=== PATIENT | male | born 1970 | race Caucasian/White ===

== ENCOUNTER 2018-05-17 11:53 | Outpatient (CLI) | payer BC, OTHER ==
--- NOTE | 2018-05-17 12:36 | XRAY Report ---
Reason: FOOT NUMBNESS Procedure Date: 05/17/2018 Accession Number: [id number] Procedure: XR - Lumbar Spine 2 View CPT Code: FULL RESULT: EXAM: LUMBOSACRAL SPINE RADIOGRAPHY EXAM DATE: 05/17/2018 12:11 PM. CLINICAL HISTORY: FOOT NUMBNESS. COMPARISONS: None. TECHNIQUE: 3 views. FINDINGS: Alignment: Normal. No spondylolisthesis or scoliosis. Bones: Five [id number] lumbar vertebral bodies are present. No fractures or bone lesions. Disks: Normal. Disk heights are maintained. Facets: Moderate L5 facet arthropathy, mild at L4. Sacroiliac Joints: Unremarkable. Soft Tissues: Normal. The visualized bowel gas pattern is normal. IMPRESSION: Mild to moderate degenerative changes. RADIA
== END 2018-05-17 11:54 | disposition home or self-care (01) ==
LOC: DI 11:53
PROVIDERS: ATTEND Family Medicine
DX: M47.817 Spondylosis without myelopathy or radiculopathy, lumbosacral region (principal); R20.0 Anesthesia of skin
CPT/HCPCS: 72100

== ENCOUNTER 2018-10-03 08:42 | Outpatient (CLI) | payer BC ==
--- NOTE | 2018-10-03 12:16 | CARDIAC PROCEDURE NOTE ---
DATE OF SERVICE: 10/03/2018 Physician: Sarina Mariee MD, [facility] INDICATIONS: Screening for coronary artery disease (Z13.6) CORONARY RISK FACTORS: Male gender, overweight (BMI is 36), possibly untreated hypertension (see below), and hyperlipidemia. PROCEDURE: After signing informed consent, the patient underwent a Lamont protocol treadmill stress test. No imaging was ordered with the study. RESTING HEART RATE: 72. Peak heart rate: 152. (87% predicted maximum heart rate for age). RESTING BLOOD PRESSURE: 142/90, Resting blood pressure when standin/87. Peak blood pressure: 192/70. The patient exercised for 9 minutes and 10 seconds on a Lamont-protocol treadmill stress test. He achieved a peak heart rate of 152 (87% predicted max HR) and 10.4 METS. He had mild to moderate shortness of breath at peak, no chest pain with exertion. Oxygen saturation was 96% on room air at peak. Normal heart rate response to exercise, hypertensive blood pressure response to exercise. RESTING EKG: Normal sinus rhythm, vertical axis, otherwise within normal limits. EKG AT PEAK: No ischemic ST segment changes by EKG criteria. SUMMARY 1. Good exercise tolerance. 2. Hypertensive blood pressure response to exercise. 3. No ischemic changes by EKG criteria on this treadmill exercise stress test, at a good level of achieved stress. 4. No imaging study was ordered with this test. cc: Davidson Pretty DO TD: 10/03/2018 12:07 MTDD
== END 2018-10-03 08:43 | disposition home or self-care (01) ==
LOC: DI 08:42
PROVIDERS: ATTEND Family Medicine
DX: Z13.6 Encounter for screening for cardiovascular disorders (principal); E78.5 Hyperlipidemia, unspecified; E66.3 Overweight; Z68.36 Body mass index [BMI] 36.0-36.9, adult; R03.0 Elevated blood-pressure reading, without diagnosis of hypertension
CPT/HCPCS: 93016; 93017; 93018

== ENCOUNTER 2018-10-14 11:15 | Outpatient (CLI) | payer BC | END 2018-10-14 11:16 | disposition home or self-care (01) | LOC: SC 11:15 | PROVIDERS: ATTEND Internal Medicine Pulmonary Disease | DX: G47.33 Obstructive sleep apnea (adult) (pediatric) (principal); E66.9 Obesity, unspecified; Z68.36 Body mass index [BMI] 36.0-36.9, adult | CPT/HCPCS: 99203; 99212 ==

== ENCOUNTER 2019-05-07 11:26 | Outpatient (CLI) | payer BC ==
--- NOTE | 2019-05-07 12:23 | SLEEP CARE CONSULTATION ---
Information from patient questionnaire entered by Yessica Cisneros. I have reviewed and concur with the information entered by Yessica Cisneros. This document represents the service I personally performed and the decisions made by me, Jennifer Chang, RN, MSN, [employer] [place]. History of Present Illness Previous diagnosis: Mild, Obstructive Sleep Apnea-Hypopnea Syndrome AHI: 9.8 (in 2013) Reason for follow up: first compliance after device update Equipment type: CPAP Equipment obtained from: [facility] Mask style: Nasal Mask brand: Respironics Backup mask available: Yes Last cushion change: a couple of months ago CPAP Compliance Data - Data Reviewed with Patient Average duration of nightly device use: 6.7 Compliance rate %: 70 (initial period) (last 30 days 57%) Current pressure setting (cmH2O): 6-10 Average residual AHI: 1.7 Average large leak: zero Subjective Missed days of use due to: reports: illness (URI - bronchitus), other (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 - does not use humidifier ), other (mask dislodging a couple times a night. ). denies: aerophagia, mask discomfort, air blowing in eyes, mask leak noise, dry mouth, nose, throat, epistaxis Observed to snore while using device: No Current pressure setting perceived as: comfortable On therapy, patient: reports: sleeping better, awakening more refreshed, being more awake and alert during the day, more rested overall. denies: drowsiness while driving Initial [place] Sleepiness Scale score: 7 Current [place] Sleepiness Scale score: 5 Allergies and Home Medications Known drug allergies: No Home medication list reviewed: Yes Allergy and home medication list: Testosterone Cypionate 200mg/ml 3ml IM every two weeks Flonase Nasal [place] As directed Claritin 10mg tab as needed Allergy List Grass Mold Review of Systems Review of systems same as previous: Yes Physical Exam Blood Pressure: 116/70 Cuff size: long Heart Rate: 94 O2 Saturation: 83 Height: 6 ft 1 in Weight: 274 lb 3.2 oz Weight change since last visit: lost 10 pounds Body Mass Index: 36.1 BMI Classification: Obesity Class 2 Impression and Plan 1. Obstructive Sleep Apnea-Hypopnea Syndrome, mild, with good treatment compliance the initial 30 days. Then compliance fell due to illness with cold. Current pressure shows good apnea control. On CPAP therapy, the patient has better sleep quality and is more rested overall. For nasal congestion, he is to use the humidity with rationale explained. To prevent mask from dislodging, I will order a headgear adaptor, he is to contact me if he does not receive. At his next follow up , he is also to bring his work CPAP card so can see all CPAP use. He is losing weight. I explained how his weight affects his apnea risk and CPAP pressure. Current CPAP auto range should accommodate his weight loss goals but symptoms to report for further pressure adjustment discussed. Patient's apnea severity and rationale for treatment to reduce apnea, improve sleep quality and reduce cardiovascular and cerebrovascular events was reviewed. * Continue CPAP pressure at 6-10 cmH2O * Add humidity when nasal congestion * Notify me if snoring with mask or feeling that the pressure is too much or too little * Continue to lose weight * Return for follow up in 2-3 months , or sooner if concerns arise ]. I spent 100% of this 30 minute visit face to face with the patient with greater than 50% of this was spent time counseling the patient and coordination of care.
[2019-05-07 12:24] VITALS: BP 116/70
== END 2019-05-07 11:27 | disposition home or self-care (01) ==
LOC: SC 11:26
PROVIDERS: ATTEND Nurse Practitioner Family
DX: G47.33 Obstructive sleep apnea (adult) (pediatric) (principal); E66.9 Obesity, unspecified; Z68.36 Body mass index [BMI] 36.0-36.9, adult
CPT/HCPCS: 99212; 99214

== ENCOUNTER 2020-01-13 11:20 | Outpatient (CLI) | payer BC | END 2020-01-13 23:59 | disposition home or self-care (01) | LOC: COV 11:20 | PROVIDERS: ATTEND Family Medicine | DX: R05 Cough (principal); R06.02 Shortness of breath; M79.10 Myalgia, unspecified site; R53.83 Other fatigue; R09.81 Nasal congestion; Z20.828 Contact with and (suspected) exposure to other viral communicable diseases ==

== ENCOUNTER 2020-05-20 12:01 | Outpatient (CLI) | payer BC ==
--- NOTE | 2020-05-20 14:48 | XRAY Report ---
PROCEDURE: Chest 2 View X-Ray INDICATIONS: WORSENING COUGHT DYSPNEA TECHNIQUE: 2 view(s) of the chest. COMPARISON: None. FINDINGS: Surgical changes and devices: None. Lungs and pleura: No pleural effusions or pneumothorax. Mild interstitial prominence. Lungs are as well as clear. Mediastinum: Mediastinal contours are normal. Heart size is normal. Bones and chest wall: No suspicious bony abnormalities. Soft tissues appear unremarkable. IMPRESSION: 1. No acute cardiopulmonary disease. 2. Mild pulmonary interstitial prominence. Reviewed by: Boni Villanueva MD on 05/20/2020 2:46 PM PST Approved by: Boni Villanueva MD on 05/20/2020 2:46 PM PST Station ID: [id number]
== END 2020-05-20 12:02 | disposition home or self-care (01) ==
LOC: DI 12:01
PROVIDERS: ATTEND Physician Assistant Medical
DX: R05 Cough (principal); R06.00 Dyspnea, unspecified

== ENCOUNTER 2021-08-03 13:03 | Outpatient (CLI) | payer BC ==
[2021-08-03 13:41] VITALS: BP 137/76
--- NOTE | 2021-08-03 13:41 | SLEEP CARE CONSULTATION ---
Information from patient questionnaire entered by Toñito Garcia MA. I have reviewed and concur with the information entered by Toñito Garcia MA. This document represents the service I personally performed and the decisions made by , Maida Camilo ARNP. History of Present Illness Service Date and Time: 08/03/2021 1303 Previous diagnosis: Mild, Obstructive Sleep Apnea-Hypopnea Syndrome AHI: 9.8 (in 2013) Reason for follow up: annual (LAST SEEN 04/2019) Equipment type: CPAP Equipment obtained from: Other ([facility]: has an order for supplies in but delayed) Mask style: Nasal Backup mask available: Yes (old mask) Last cushion change: 3 months ago Prior sleep studies: Yes HPI additional information: JAZLYN PEGUERO was diagnosed to have mild, AHI 9.8, obstructive sleep apnea- hypopnea syndrome and returned today for CPAP therapy annual follow-up. 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 denies: aerophagia, mask discomfort, air blowing in eyes, condensation in mask/hose, dry mouth, nose, throat, epistaxis Observed to snore while using device: No Current pressure setting perceived as: comfortable On therapy, patient: reports: sleeping better, awakening more refreshed, being more awake and alert during the day, more rested overall. denies: drowsiness while driving Initial [place] Sleepiness Scale score: 7 Current [place] Sleepiness Scale score: 6 (2021) Allergies and Home Medications Known drug allergies: No Drug allergies reviewed: Yes Home medication list reviewed: Yes (no changes) Review of Systems Review of systems same as previous: Yes (no changes) Physical Exam Vital signs obtained and entered by: ANICETO PERAZA Blood Pressure: 137/76 (LEFT, PULSE 68, RESP 16,) Cuff size: wrist Heart Rate: 68 O2 Saturation: 96 (WITH PAPER MASK) Height: 6 ft 1 in Weight: 290 lb (W/O CLOTHES) Body Mass Index: 38.2 BMI Classification: Obese Impression and Plan 1. Obstructive Sleep Apnea-Hypopnea Syndrome, mild, with good treatment compliance and good apnea control. On CPAP therapy, the patient has better sleep quality and is more rested overall. 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 I do not have the compliance information for his work machine. He states that it is a DreamStation that is about 10 years old. I informed him of the recall for [employer] devices and encouraged him to register with [employer] to see if it is on the recall. He voiced understanding. Patient is satisfied with current CPAP therapy. Patient asking about getting a portable CPAP that he can take on camping trips. He understands that this is not covered by his insurance. I will write a prescription for a portable machine and he will shop online. Patient's apnea severity and rationale for treatment to reduce apnea, improve sleep quality and reduce cardiovascular and cerebrovascular events was reviewed. I also reviewed the benefit of consistent device use of CPAP for anxiety. Patient states he has not been able to lose much weight recently. He has been under a lot of stress which has prevented him from concentrating on weight loss. I encouraged him to try to lose weight and to exercise regularly. He voiced understanding and agreement. * Continue auto CPAP pressure at 6-10 cmH2O * Prescription for portable APAP machine, patient to purchase on own * Notify me if snoring with mask or feeling that the pressure is too much or too little * Attempt to lose weight * Call this office if any problems using CPAP * Return for follow up in 1 year, or sooner if concerns arise Counseling Topics: Spare mask, Weight loss health impact Visit Type: In Office Time Spent with Patient (minutes): 21 Provider Statement: I spent 100% of the Face to Face Visit with the patient with greater than 50% spent counseling the patient and coordination of care.
== END 2021-08-03 13:04 | disposition home or self-care (01) ==
LOC: SC 13:03
PROVIDERS: ATTEND Nurse Practitioner Family
DX: G47.33 Obstructive sleep apnea (adult) (pediatric) (principal); E66.9 Obesity, unspecified; Z68.38 Body mass index [BMI] 38.0-38.9, adult
CPT/HCPCS: 99212; 99213

== ENCOUNTER 2022-08-29 15:06 | Outpatient (CLI) | payer BC ==
--- NOTE | 2022-08-29 18:06 | XRAY Report ---
PROCEDURE: Cervical Spine Complete INDICATIONS: CERVICAL RADICULOPATHY RADIATING INTO LFT GLENLDER TECHNIQUE: 4 views of the cervical spine acquired. COMPARISON: None. FINDINGS: Bones: No fractures or dislocations to the vertebra level. Oblique images demonstrate lack images demonstrate severe right foraminal narrowing at C5-C6 and mild right bony foraminal narrowing at C4-C 5. There is mild to moderate left bony foraminal narrowing at C4-C5. There is chronic disc height los s and uncovertebral joint hypertrophy at C5-C6. Soft tissues: No prevertebral soft tissue swelling. IMPRESSION: Cervical spondylosis with bony foraminal narrowing. Reviewed by: Igor Vang MD on 08/29/2022 6:04 PM PDT Approved by: Igor Vang MD on 08/29/2022 6:04 PM PDT Station ID: [id number]
--- NOTE | 2022-08-29 18:07 | XRAY Report ---
PROCEDURE: Knee 2 View BILAT INDICATIONS: OA BILATERAL KNEES TECHNIQUE: 2 views of the bilateral knee(s) were acquired. COMPARISON: None. FINDINGS: Bones: No fractures or dislocations. No suspicious bony lesions. Bilateral degenerative change. T ricompartment osteophytes bilaterally. On the right, there is severe medial compartment joint space l oss. On the left, there is moderate medial compartment joint space loss. Soft tissues: No joint effusion. No suspicious soft tissue calcifications. IMPRESSION: Bilateral degenerative arthritis, right greater than left. Reviewed by: Igor Vang MD on 08/29/2022 6:06 PM PDT Approved by: Igor Vang MD on 08/29/2022 6:06 PM PDT Station ID: [id number]
== END 2022-08-29 15:07 | disposition home or self-care (01) ==
LOC: DI 15:06
PROVIDERS: ATTEND Family Medicine
DX: M17.0 Bilateral primary osteoarthritis of knee (principal); M47.812 Spondylosis without myelopathy or radiculopathy, cervical region; M48.02 Spinal stenosis, cervical region

== ENCOUNTER 2023-03-20 12:43 | Outpatient (CLI) | payer BC ==
--- NOTE | 2023-03-20 13:14 | Sleep Patient Instructions ---
Sleep Center Visit Summary - Patient Visit Information Reason for Visit: Annual visit for PAP therapy - Patient Instructions Additional Instructions: You will continue with CPAP therapy with pressure set at 6-10 cmH2O. A supply prescription will be updated with your DME. A prescription for a travel CPAP was completed and given to you at the end of your visit. We encourage you to continue to try to lose weight. Please follow up with the sleep care office in 1 year. - Clinic Information Contact: [facility] [address] [place] [address] [email or web address] T: [phone]
--- NOTE | 2023-03-20 13:18 | SLEEP CARE CONSULTATION ---
Information from patient questionnaire entered by Sherin Ivan. I have reviewed and concur with the information entered by Sherin Ivan. This document represents the service I personally performed and the decisions made by me, Maida Camilo ARNP. History of Present Illness Service Date and Time: 03/20/2023 1243 Previous diagnosis: Mild, Obstructive Sleep Apnea-Hypopnea Syndrome AHI: 9.8 (in 2013) Reason for follow up: annual (LAST SEEN 07/2021) Equipment type: CPAP (RESMED Airsense 10, s/u 01/2019) Equipment obtained from: Other ([facility]; getting supplies) Mask style: Nasal (medium wide) Mask brand: Respironics (Advaxiswear) Backup mask available: Yes Last cushion change: 2 months ago Prior sleep studies: Yes HPI additional information: JAZLYN PEGUERO was diagnosed to have mild, AHI 9.8, obstructive sleep apnea- hypopnea syndrome and returned today for CPAP therapy annual follow-up. Sleep Study - Results Prior sleep studies: Yes CPAP Compliance Data - Data Reviewed with Patient Average duration of nightly device use: 7 HRS 6 MINS Compliance rate %: 74 (09/17/22-03/15/23) Current pressure setting (cmH2O): 6-10 Average residual AHI: 2.5 Average large leak: 0.1 L/min Subjective Missed days of use due to: reports: illness (viral illness), other (uses other CPAP when working at [employer] station) Patient concerns: denies: aerophagia, mask discomfort, air blowing in eyes, mask leak noise, condensation in mask/hose, nasal congestion, dry mouth, nose, throat, epistaxis Observed to snore while using device: No Current pressure setting perceived as: comfortable On therapy, patient: reports: sleeping better, awakening more refreshed, being more awake and alert during the day, more rested overall. denies: drowsiness while driving Initial [place] Sleepiness Scale score: 7 Current [place] Sleepiness Scale score: 6 (03/19/23) Allergies and Home Medications Known drug allergies: No Drug allergies reviewed: Yes Home medication list reviewed: Yes (no changes) Review of Systems Review of systems same as previous: Yes (no changes) Physical Exam Vital signs obtained and entered by: SHERIN Bañuelos MA Blood Pressure: 147/92 (LEFT) Cuff size: wrist Heart Rate: 971 O2 Saturation: 96 Height: 6 ft 1 in Weight: 310 lb 9.6 oz Weight change since last visit: 20 lb gain Body Mass Index: 40.9 BMI Classification: Morbidly Obese Impression and Plan 1. Obstructive Sleep Apnea-Hypopnea Syndrome, mild, with good treatment compliance and good apnea control. On CPAP therapy, the patient has better sleep quality and is more rested overall. He has significant improvement of his sleep apnea and is satisfied with current therapy. He would like to get a travel CPAP. He is aware that this is not usually covered by insurance and he should shop around for a good ceballos. I will write a prescription for the travel CPAP. We will follow up with him next year. Patient's apnea severity and rationale for treatment to reduce apnea, improve sleep quality and reduce cardiovascular and cerebrovascular events was reviewed. I also reviewed the benefit of consistent device use of CPAP for anxiety. 2. Obesity, unspecified. Currently patients BMI is 40.9. Obesity increases the risk of apnea, CPAP pressure requirements and overall health risks especially cardiovascular and diabetes. Thus patient is advised to lose weight. * Continue auto CPAP pressure at 6-10 cmH2O * Update supply prescription * Travel CPAP prescription per pt request * Notify me if snoring with mask or feeling that the pressure is too much or too little * Attempt to lose weight * Call this office if any problems using CPAP * Return for follow up in 1 year, or sooner if concerns arise Counseling Topics: Spare mask, Weight loss health impact Prescriptions: Device supplies, Other (Travel CPAP) Visit Type: In Office Time Spent with Patient (minutes): 24 Provider Statement: I spent 100% of the Face to Face Visit with the patient with greater than 50% spent counseling the patient and coordination of care.
[2023-03-20 13:45] VITALS: BP 147/92; O2SAT 96
== END 2023-03-20 12:44 | disposition home or self-care (01) ==
LOC: SC 12:43
PROVIDERS: ATTEND Nurse Practitioner Family
DX: G47.33 Obstructive sleep apnea (adult) (pediatric) (principal); E66.01 Morbid (severe) obesity due to excess calories; Z68.41 Body mass index [BMI] 40.0-44.9, adult
CPT/HCPCS: 99212; 99213

== ENCOUNTER 2023-11-28 19:21 | Outpatient (CLI) | payer BC ==
--- NOTE | 2023-11-29 09:54 | Ultrasound Report ---
PROCEDURE: Soft Tissue Head or Neck INDICATIONS: LUMP ON LT OCCIPTAL REGION TECHNIQUE: Real-time scanning was performed of the area of interest, with image documentation. COMPARISON: None FINDINGS: Area of interest in the left occipital scalp shows 10 x 5 mm and 6 x 3 mm hypoechoic lesions with no vascularity. IMPRESSION: Subcentimeter lesions of uncertain etiology within the area of interest. Recommend clinical correlati on and follow-up and recommend repeat imaging if there is concern for growth. Reviewed by: Ridge Durant MD on 11/29/2023 9:53 AM PDT Approved by: Ridge Durant MD on 11/29/2023 9:53 AM PDT Station ID: [id number]
== END 2023-11-28 19:22 | disposition home or self-care (01) ==
LOC: DI 19:21
PROVIDERS: ATTEND Physician Assistant
DX: R22.0 Localized swelling, mass and lump, head (principal)